=== PATIENT | female | born 1955 | race African-American/Black ===

== ENCOUNTER → 2020-11-27 | Outpatient (CLI) | payer OTHER ==
[~2020-11-27] MED LIST: AMLODIPINE BESYL5 MG; CALCIUM 600 +1 EAC1; CARDURA; CYCLOBENZAPRINE10 MG; LISINOPRIL40 MG; METAMUCIL0.52 GM; METFORMIN; MOBIC15 MG; VITAMIN A10000 UNI3; VITAMIN C + RO500 MG; VITAMIN D2400 UNIT; VITAMIN E400 UNIT
== END ==
LOC: SJCVC 10:35
PROVIDERS: ATTEND Internal Medicine
DX: R06.02 Shortness of breath (principal); E78.5 Hyperlipidemia, unspecified; I10 Essential (primary) hypertension; E11.9 Type 2 diabetes mellitus without complications; I63.50 Cerebral infarction due to unspecified occlusion or stenosis of unspecified cerebral artery; G47.33 Obstructive sleep apnea (adult) (pediatric); J44.9 Chronic obstructive pulmonary disease, unspecified; K21.9 Gastro-esophageal reflux disease without esophagitis; M19.90 Unspecified osteoarthritis, unspecified site; F12.90 Cannabis use, unspecified, uncomplicated; Z86.73 Personal history of transient ischemic attack (TIA), and cerebral infarction without residual deficits; Z79.899 Other long term (current) drug therapy; Z88.2 Allergy status to sulfonamides; Z88.0 Allergy status to penicillin; Z88.8 Allergy status to other drugs, medicaments and biological substances

== ENCOUNTER → 2020-12-25 | Outpatient (CLI) | payer OTHER | LOC: SJCVCIMAG 14:44 | PROVIDERS: ATTEND Internal Medicine | DX: I35.8 Other nonrheumatic aortic valve disorders (principal) ==